=== PATIENT | female | born 1965 | race Two or more races ===

== ENCOUNTER → 2024-02-16 | Outpatient (CLI) | payer MEDICAID, SELFPAY ==
--- NOTE | 2024-02-16 14:30 | XR_ITS ---
Examination: Screening digital mammography, bilateral Computer aided detection 3-D breast Tomosynthesis, bilateral Date and time of exam: February 16, 2024 1411 hours Comparison April 09, 2013 Indication: Screening Technique: Nonmagnified MLO, CC views of the breasts to been obtained, reconstructed from 3-D Tomosynthesis images. R2 computer aided detection program utilized for evaluation of suspicious masses and/or abnormal calcifications. 3-D Tomosynthesis images obtained. Findings: The breasts are heterogeneously dense, which may obscure small masses Stable focal asymmetry, glandular tissue upper right breast MLO view Benign calcifications. No interval suspicious masses Impression: BI-RADS category II: Benign Findings. Recommend 1 year follow-up mammogram.
== END | disposition home or self-care (01) ==
PROVIDERS: PCP Nurse Practitioner Family; Referring Provider Nurse Practitioner Family; Visit Provider Nurse Practitioner Family
DX: Z12.31 Encounter for screening mammogram for malignant neoplasm of breast (principal); R92.323 Mammographic fibroglandular density, bilateral breasts; R92.1 Mammographic calcification found on diagnostic imaging of breast
CPT/HCPCS: 77063; 77067

== ENCOUNTER 2024-12-07 20:14 | Emergency (ER) | payer MEDICAID, SELFPAY ==
[2024-12-07 20:16] VITALS: BMI 27.6
--- NOTE | 2024-12-07 20:31 | XR_ITS ---
Examination: Abdomen sonogram, Limited Date and time of exam: December 07, 2024, 1029 hours INDICATIONS: Onset upper abdominal pain today Technique: Real-time mao scale transabdominal sonographic images of the upper abdomen obtained. Findings: Small gallstones Normal gallbladder wall Common bile duct 0.2 cm Pancreatic head 3.1 cm Liver 13.8 cm no liver lesions Normal Renal 0.9 Patent IVC IMPRESSION: Cholelithiasis, negative for cholecystitis
--- NOTE | 2024-12-07 20:31 | XR_ITS ---
Examination: CT abdomen and pelvis without contrast. Coronal 3-D reconstructions. Sagittal 2-D reconstructions. Date and time of exam: December 07, 2024, 0949 hours INDICATIONS: Left lower abdominal pain beginning 5 hours ago CTDI: vol (mGy): 8.17 DLP: (mGycm): 492 Technique: Axial images of the abdomen have been obtained, 3 mm slice thickness Intravenous contrast material has not been administered. Low dose protocols were performed. One or more of the following dose reduction techniques were used; automated exposure control, adjustment of the mA and/or KV according to patient size, use of iterative reconstruction technique. Findings: 492 no focal liver or splenic lesions Cholelithiasis No pancreatic or adrenal mass Mild left hydronephrosis secondary to 2 mm proximal left ureteral calculus No bowel obstruction Aorta normal size Normal appendix No pelvic mass Urinary bladder intact Osseous structures intact IMPRESSION: Mild left hydronephrosis secondary to 2 mm proximal left ureteral calculus
--- NOTE | 2024-12-07 20:32 | EDNOTE_ITS ---
ED Female Urogenital RME/HPI General Chief complaint: Abdominal Pain Stated complaint: LLQ ABD PAIN Time Seen by Provider: 12/07/24 20:43 Arrival date/time: 12/07/24 20:14 RME / HPI RME / HPI Narrative: See [facility] for Dr. Torres's HPI Documentation. Related Data Previous Rx's ?Medication ?Instructions ?Recorded acetaminophen 300 mg-codeine 30 mg 2 tab PO Q8H PRN pa in #20 tabs 12/07/24 tablet ketorolac 10 mg tablet 10 mg PO Q8H PRN pain 5 days #10 12/07/24 tabs ondansetron 4 mg disintegrating 4 mg PO TID PRN nausea and 12/07/24 tablet vomiting 30 days #10 tabs tamsulosin 0.4 mg capsule (Flomax) 0.4 mg PO QDAY 7 da ys #7 caps 12/07/24 Allergies Allergy/AdvReac Type Severity Reaction Status Date / Time No Known Allergies Allergy Verified 12/07/24 20:20 Review of Systems Review of Systems Systems Reviewed: All systems reviewed, normal except as documented Past Medical History Past Medical History REPRODUCTIVE: Positive Previous Pregnancies Surgical History SURGICAL: Positive Tubal Ligation ED Exam Narrative Physical exam: See [facility] for Dr. Torres's Physical Exam Documentation. Course Quality Measures none Orders Category Date Time Status Insert IV NOW Care 12/07/24 21:00 Completed Miscellaneous Nursing Order NOW Care 12/07/24 23:41 Completed Saline [Insert IV] NOW Care 12/07/24 20:[address] abdomen pelvis wo con Stat Exams 12/07/24 20:31 Completed US gall bladder Stat Exams 12/07/24 20:31 Completed Amylase Stat Lab 12/07/24 20:49 Completed Bilirubin,Direct Stat Lab 12/07/24 20:49 Completed CBC Stat Lab 12/07/24 20:49 Completed CMP [Comprehensive Metabolic Panel] Stat Lab 12/07/24 20:49 Completed Lipase Stat Lab 12/07/24 20:49 Completed Magnesium Stat Lab 12/07/24 20:49 Completed UA, C/S IF [Urinalysis, C/S if Indicated] Stat Lab 12/07/24 20:53 Completed Fluconazole/Ns 200 mg Ivpb [Diflucan/Ns Ivpb] Med 12/07/24 21:44 Discontinued 200 mg in 100 ml IV X1 Ketorolac Inj [Toradol Inj] Med 12/07/24 20:31 Discontinued 30 mg IVP X1 ONE Morphine* Inj Med 12/07/24 20:31 Discontinued 4 mg IV X1 ONE Ondansetron Inj [Zofran Inj] Med 12/07/24 20:31 Discontinued 4 mg IVP X1 ONE Sodium Chloride 0.9% 1000 ml [Ns] 1,000 ml Med 12/07/24 20:31 Discontinued IV 999 mls/hr Tamsulosin HCl [Flomax] Med 12/07/24 23:41 Discontinued 0.4 mg PO X1 ONE Vital Signs Vital signs: Vital Signs Temperature 98.9 F 12/07/24 20:57 Pulse Rate 84 12/07/24 20:57 Respiratory Rate 15 12/07/24 20:57 Blood Pressure 147/78 H 12/07/24 20:57 Pulse Oximetry (%) 96 12/07/24 20:57 Oxygen Delivery Method Room Air 12/07/24 20:57 Urogenital - Female MDM Narrative MDM Narrative:: This section includes all my notes and documentations, including HPI, PE, and ED course. Geovanni Torres MD HPI: 59 y/o female presents with several hours of severe left flank pain. With na usea, no vomiting. No fever. No urinary symptoms. No other complaints. ROS: All negative except as documented in HPI. Physical Exam: General: Alert and oriented. In obvious pain. Eyes: Conjunctivae and lids clear. ENT: No nasal congestion. Neck: Supple. Heart: RRR. Lungs: No respiratory distress. Good air movement. No rhonchi, wheezing, rales. Abdomen: Soft and nontender. Normal bowel sounds. No distension. No rebound or guarding. Back: No CVA tenderness. Skin: Warm and dry. Neuro: Alert and oriented X 3. I reviewed all diagnostic test results: My review of the Abdomen/Pelvis CT report is: Mild left hydronephrosis secondary to 2 mm proximal left ureteral calculus. My review of the Gall Bladder US report is: Cholelithiasis, negative for ch olecystitis. Blood tests and urine tests remarkable for hematuria. At this point, diagnoses include: Kidney Stone on Left Side Treatment here included: IVF Toradol 30 mg IV Morphine 4 mg IV Zofran 4 mg IV Diflucan 200 mg IV for yeast in urine Flomax 0.4 mg orally Urine strainer dispensed. Recommended a trial of outpatient treatment. Based on my best medical judgment, made decision no further evaluation or treatment indicated at this time. Patient understands and agrees to the discharge instructions customized and printed, see below. Discharge Instructions from Dr. Torres: --Your symptoms are due to a 2 mm right kidney stone.? It is outside the kidney.? It is trying to pass into your bladder.? --Increase oral fluid to flush your kidneys.? Maintain clear urine. if it's dark or yellow then increase oral fluid.? If you don't do this, you won't pass it.? --Take Flomax to help decrease spasms to increase the chance of passing it.? --Take Zofran as needed for nausea or vomiting. --Take Ketorolac/Toradol for pain control.? And Tylenol with Codeine.? If you are in severe pain, you won't pass it.?? --Strain your urine so you can catch the stone when you pass it.? --See a private doctor on 12/26/2024 for recheck. Take the stone with you for analysis because certain stones can be prevented.? If you didn't pass it, ask for referral to see urologist.? Who will take the stone out for you. --Seek immediate medical care with fever over 100.4, persistent vomiting despite Zofran, intolerable pain, or with any concerns.?? Geovanni Torres MD Patient data External records reviewed:: [facility] previous records (Reviewed prior ED records from 11/17/23. Patient was seen for Palpitations.) Clinical information provided by:: patient Social determinants that could affect healthcare access:: none Patient has the following chronic illnesses:: None reported How is presenting disease/condition affected by chronic disease/condition?: no chronic disease Evaluation data The following diagnostics were reviewed and interpreted by me:: lab results and radiology exam(s) Lab and/or radiology exams considered but not ordered:: None Interpretation Summary: I reviewed all diagnostic test results: My review of the Abdomen/Pelvis CT report is: Mild left hydronephrosis secondary to 2 mm proximal left ureteral calculus. My review of the Gall Bladder US report is: Cholelithiasis, negative for cholecystitis. Blood tests and urine tests remarkable for hematuria. Medications / Prescriptions Medications or Prescriptions considered but not ordered:: None Medication administrations:: Medication Administration History Discontinued Medications Sodium Chloride (Ns) 1,000 mls @ 999 mls/hr IV .Q1H1M ONE Stop: 12/07/24 21:31 Last Infusion: 12/07/24 21:41 Dose: Infused Documented By: Admin: 12/07/24 21:12 Dose: 999 mls/hr Documented By: MYA Fluconazole (Diflucan/Ns Ivpb) 200 mg in 100 mls @ 100 mls/hr IV X1 ONE Stop: 12/07/24 22:43 Last Infusion: 12/08/24 00:13 Dose: Infused Documented By: Admin: 12/07/24 22:19 Dose: 100 mls/hr Documented By: MYA Ketorolac Tromethamine (Ketorolac Inj 30 Mg/Ml Vial) 30 mg IVP X1 ONE Stop: 12/07/24 20:32 Last Admin: 12/07/24 21:09 Dose: 30 mg Documented By: MYA Morphine Sulfate (Morphine Sulf Inj 4 Mg/Ml Vial) 4 mg IV X1 ONE Stop: 12/07/24 20:32 Last Admin: 12/07/24 21:09 Dose: 4 mg Documented By: MYA Ondansetron HCl (Ondansetron Inj 2 Mg/Ml Inj 2 Ml) 4 mg IVP X1 ONE; Protocol Stop: 12/07/24 20:32 Last Admin: 12/07/24 21:09 Dose: 4 mg Documented By: MYA Tamsulosin HCl (Tamsulosin Hcl 0.4 Mg Capsule) 0.4 mg PO X1 ONE Stop: 12/07/24 23:42 Last Admin: 12/08/24 00:13 Dose: 0.4 mg Documented By: MYA Treatment here included: IVF Toradol 30 mg IV Morphine 4 mg IV Zofran 4 mg IV Diflucan 200 mg IV for yeast in urine Flomax 0.4 mg orally Urine strainer dispensed. Consultations Consultation(s) initiated? (list below): No Diagnosis Urogenital Female Differential Diagnosis: urinary tract infection, cystitis and other (Renal calculi, Pyelonephritis) Most likely diagnosis given after review of the tests above:: Kidney Stone on Left Side Admission Indicated Admission indicated?: not indicated Explain why admission is indicated or not indicated:: With significant improvement and no condition needing emergent intervention, there was no indication for admission. Admission Request Was there a request for admission?: No Disposition Plan Disposition Plan: Discharge Discharge Attestation Discharge Attestation: The patient and all family members were given an opportunity to ask questions and understood the discharge instructions. Discharge instructions specifically effects, indications for sooner follow up or return to the emergency department, and the expected course of current diagnosis. Patient condition: Stable Discharge Plan Plan Patient Disposition: HOME (Self Care) Prescriptions/Referrals Prescriptions/Med Rec: New acetaminophen-codeine 300-30 mg tablet 2 tab PO Q8H MDD 6 PRN (Reason: pain) Qty: 20 0RF ketorolac 10 mg tablet 10 mg PO Q8H PRN (Reason: pain) 5 Days Qty: 10 0RF tamsulosin [Flomax] 0.4 mg capsule 0.4 mg PO QDAY 7 Days Qty: 7 0RF ondansetron 4 mg tablet,disintegrating 4 mg PO TID PRN (Reason: nausea and vomiting) 30 Days Qty: 10 0RF Referrals: Vincent Schwartz MD [Primary Care Provider, Family Practice] - In 1 week Problem List Clinical Impression: Kidney stone on left side Patient/Caregiver Discharge Instructions Discharge Activity: activity as tolerated Education Materials: ED Kidney Stone w/ Colic Additional Instructions: Discharge Instructions from Dr. Torres: --Your symptoms are due to a 2 mm right kidney stone.? It is outside the kidney.? It is trying to pass into your bladder.? --Increase oral fluid to flush your kidneys.? Maintain clear urine. if it's dark or yellow then increase oral fluid.? If you don't do this, you won't pass it.? --Take Flomax to help decrease spasms to increase the chance of passing it.? --Take Zofran as needed for nausea or vomiting. --Take Ketorolac/Toradol for pain control.? And Tylenol with Codeine.? If you are in severe pain, you won't pass it.?? --Strain your urine so you can catch the stone when you pass it.? --See a private doctor on 12/26/2024 for recheck. Take the stone with you for analysis because certain stones can be prevented.? If you didn't pass it, ask for referral to see urologist.? Who will take the stone out for you. --Seek immediate medical care with fever over 100.4, persistent vomiting despite Zofran, intolerable pain, or with any concerns.?? Instrucciones de johnnie del Dr. Torres: ?Elizabeth s?ntomas se deben a un c?lculo renal derecho de 2 mm. Se encuentra fuera del ri??n e intenta pasar a la vejiga. ?Aumente la ingesta de l?quidos para ayudar a limpiar los ri?ones. Mantenga la orina laura. Si est? oscura o amarilla, aumente la ingesta de l?quidos. De lo contrario, no podr? expulsarlo. ?[place] Flomax para disminuir los espasmos y aumentar las probabilidades de expulsarlo. ?[place] Zofran seg?n sea necesario para las n?useas o los v?mitos. ?[place] Ketorolaco/Toradol para controlar el dolor y Tylenol con Code?na. Si siente dolor intenso, no podr? expulsarlo. ?Cuela la orina para poder recoger el c?lculo al expulsarlo. ?Consulte a un m?dico particular el 26/12/2024 para johnathon revisi?n. Lleve la diana para que la analicen, ya que algunas se pueden prevenir. Si no la expulsa, pida que le deriven a un ur?logo, quien se la extraer?. Busque atenci?n m?dica inmediata si tiene fiebre superior a 38 ?C, v?mitos persistentes a pesar de farrah Zofran, dolor intenso o cualquier otra preocupaci?n. Print Language: Armenian Stand Alone Forms: Miguelina Award Info., Patient Portal Info Letter
[2024-12-07 20:57] VITALS: BP 147/78; PULSE 84; RESP 15; TEMP 37.2; O2SAT 96
[2024-12-07 21:00] LABS: Collection Type, Urine Clean Catch; WBC,Urine 0 /hpf (0-5)
[2024-12-07 21:02] LABS: Basophils # (Auto) 0.0 Thou/mm3 (0.0-0.2); Basophils % (Auto) 0 % (0-2.5); Eosinophils # (Auto) 0.0 Thou/mm3 (0.0-0.5); Eosinophils % (Auto) 0 % (0-10); Hematocrit 33.3 % (36.0-46.0); Hemoglobin 10.5 g/dL (12.0-16.0); Immature Granulocytes Auto 0.04 Thou/mm3 (0.00-0.00); Lymphocytes # (Auto) 1.6 Thou/mm3 (1.0-4.8); Lymphocytes % (Auto) 15 % (10-50); Mean Corpuscular HGB Conc 31.5 g/dl (31.0-37.0); Mean Corpuscular Hemoglobin 24.7 pg (25.0-35.0); Mean Corpuscular Volume 78 fL (80-100); Monocytes # (Auto) 0.5 Thou/mm3 (0.0-0.8); Monocytes % (Auto) 5 % (0-12); Neutrophils # (Auto) 8.0 Thou/mm3 (1.8-7.7); Neutrophils % (Auto) 79 % (37-80); Nucleated Red Blood Cell # 0.00 Thou/mm3 (0.00-0.00); Nucleated Red Blood Cell % 0 /100 WBC (0); Platelet Count 351 Thou/mm3 (140-440); RDW Standard Deviation 47.0 fL (36.4-46.3); Red Blood Count 4.25 Miln/mm3 (4.00-5.20); White Blood Count 10.2 Thou/mm3 (3.6-11.0)
[2024-12-07] MEDS: KETOROLAC INJ 30 MG/ML VIAL IVP (21:09)
[2024-12-07] MEDS: MORPHINE SULF INJ 4 MG/ML VIAL IV (21:09)
[2024-12-07] MEDS: ONDANSETRON INJ 2 MG/ML INJ 2 ML 4 MG IVP (21:09)
[2024-12-07] MEDS: SODIUM CHLORIDE 0.9% 1000 ML 1,000 ML 999 ML IV (21:12)
[2024-12-07 21:19] LABS: Bilirubin,Urine Negative (Negative); Blood,Urine 2+ (Negative); Budding Yeast,Urine Present; Clarity,Urine Turbid (Clear/Hazy); Color,Urine Yellow (Lt Yel-Yel); Culture Indicated,Urine Not Indicated; Glucose, Urine Negative (Negative); Ketones,Urine Negative (Negative); Leukocyte Esterase,Urine Negative (Negative); Nitrite,Urine Negative (Negative); PH,Urine 7.0 (5.0-7.0); Protein,Urine Trace (Neg - Trace); RBC,Urine 247 /hpf (0-3); Specific Gravity,Urine 1.024 (1.001-1.035); Squamous Epithelial Cell,Urine 2 /hpf (0-5); Urobilinogen,Urine Negative mg/dL (0.0-1.0)
[2024-12-07 21:38] LABS: Alanine Aminotransferase 25 U/L (10-49); Albumin, Serum 4.5 gm/dL (3.5-5.0); Albumin/Globulin Ratio 1.5 (1.2-2.2); Alkaline Phosphatase 98 U/L (46-116); Amylase 83 U/L (30-118); Anion Gap 10 (7-16); Aspartate Amino Transferase 25 U/L (0-34); BUN/Creatinine Ratio 11 Ratio (12-20); Bilirubin,Direct < 0.1 mg/dL (0.0-0.3); Bilirubin,Total 0.3 mg/dL (0.3-1.2); Blood Urea Nitrogen 17 mg/dL (9-23); Calcium 9.8 mg/dL (8.3-10.6); Calcium (Corrected) 9.8 mg/dL (8.5-10.1); Carbon Dioxide 24.1 mMol/L (20.0-31.0); Chloride 106 mMol/L (98-107); Creatinine (Component) 1.6 mg/dL (0.6-1.3); Estimated Creatinine Clearance 36.6 mL/min (>60); Globulin 3.0 gm/dL (2.3-3.5); Glucose 137 mg/dL (74-106); Lipase 34 U/L (12-53); Magnesium 2.1 mg/dL (1.6-2.6); Osmolality,Calculated 282 (275-295); Potassium 4.2 mMol/L (3.4-5.1); Sodium 140 mMol/L (136-145); Total Protein 7.5 gm/dL (5.7-8.2); eGFR 37 See Note
[2024-12-07] MEDS: FLUCONAZOLE/NS 200 MG IVPB 200 MG/100 ML BAG 100 MG IV (22:19)
[2024-12-08] MEDS: TAMSULOSIN HCL 0.4 MG CAPSULE PO (00:13)
[2024-12-08 00:18] VITALS: BP 147/68; PULSE 60; RESP 16; TEMP 36.6; O2SAT 99
== END 2024-12-08 00:19 | disposition home or self-care (01) ==
PROVIDERS: Emergency Provider Emergency Medicine; PCP Family Medicine
DX: N13.2 Hydronephrosis with renal and ureteral calculous obstruction (principal); K80.20 Calculus of gallbladder without cholecystitis without obstruction
CPT/HCPCS: 36415; 74176; 76705; 80053; 81001; 82150; 82248; 83690; 83735; 85025; 96365; 96366; 96375; 99284; J1450; J1885; J2270; J2405; J7030; A9270